=== PATIENT | male | born 2000 | race Caucasian/White ===

== ENCOUNTER 2018-10-29 19:23 | Emergency (ER) | payer BC ==
--- NOTE | 2018-10-29 19:44 | EDM.PDOC ---
ED HPI GENERAL MEDICAL PROBLEM - General Chief Complaint: Upper Extremity Injury/Pain Stated Complaint: HURT ARM Time Seen by Provider: 10/29/18 19:42 Source of Information: Reports: Patient History Limitations: Reports: No Limitations - History of Present Illness INITIAL COMMENTS - FREE TEXT/NARRATIVE: fell amongst rocks and hurt left elbow [employer]. - Related Data Allergies Allergy/AdvReac Type Severity Reaction Status Date / Time seasonal allergies Allergy Rash Uncoded 10/29/18 19:50 Home Meds: Home Meds Albuterol Sulfate [Albuterol Sulfate Hfa] 18 gm IH DAILY PRN 10/29/18 [History] Review of Systems - Review of Systems Review Of Systems: ROS reveals no pertinent complaints other than HPI. ED EXAM, GENERAL - Physical Exam Exam: See Below Exam Limited By: No Limitations General Appearance: Alert, WD/WN, No Apparent Distress Ears: Hearing Grossly Normal Throat/Mouth: Normal Voice, No Airway Compromise Head: Atraumatic Neck: Non-Tender, Full Range of Motion Respiratory/Chest: No Respiratory Distress Cardiovascular: Regular Rate, Rhythm GI/Abdominal: Soft, Non-Tender Extremities: Other (left elbow swollen, tender R/P, NV wnl.) Neurological: Alert, Oriented, Normal Cognition, Normal Gait, No Motor/Sensory Deficits Psychiatric: Normal Affect, Normal Mood Skin Exam: Warm, Dry, Normal Color Lymphatic: No Adenopathy Course - Vital Signs Last Recorded V/S: Last Vital Signs Temp 36.5 C 10/29/18 19:33 Pulse 92 10/29/18 19:33 Resp 18 10/29/18 19:33 BP 145/71 H 10/29/18 19:33 Pulse Ox 99 10/29/18 19:33 - Orders/Labs/Meds Orders: Active Orders 24 hr Category Date Time Status Elbow Min 3V Lt [CR] Urgent Exams 10/29/18 19:30 Taken - Re-Assessments/Exams Free Text/Narrative Re-Assessment/Exam: 10/29/18 20:16 results discussed with pt. Departure - Departure Time of Disposition: 20:16 Disposition: Home, Self-Care 01 Condition: Good Clinical Impression: Contusion of elbow, left Qualifiers: Encounter type: initial encounter Qualified Code(s): S50.02XA - Contusion of left elbow, initial encounter - Discharge Information Instructions: Contusion, [id number] Forms: ED Department Discharge Additional Instructions: 1) avoid vigorous activities next 3 days 2) ice for swelling 3) recheck if there is any change or concern - My Orders Last 24 Hours: My Active Orders 10/29/18 19:30 Elbow Min 3V Lt [CR] Urgent - Assessment/Plan Last 24 Hours: My Active Orders 10/29/18 19:30 Elbow Min 3V Lt [CR] Urgent
== END 2018-10-29 20:38 | disposition home or self-care (01) ==
LOC: DL.ED 19:23
DX: S50.02XA Contusion of left elbow, initial encounter (principal); Z79.899 Other long term (current) drug therapy; Z91.09 Other allergy status, other than to drugs and biological substances; W18.39XA Other fall on same level, initial encounter
CPT/HCPCS: 73080-LT; 99283-25